=== PATIENT | male | born 1965 | race Caucasian/White ===

== ENCOUNTER 2016-10-23 14:04 | Emergency (ER) | payer OTHER ==
[~2016-10-23] VITALS: Ht 172.7 cm; Wt 73.5 kg
[~2016-10-23 14:04] MED LIST: ADVIL200 MG PO; AMBIEN5 MG PO; KEPPRA750 MG PO; MOBIC15 MG PO; NEURONTIN300 MG PO; NOHOMEMEDS; PERCOCET 5/31 TABLET PO; TRAZODONE HCL50 MG PO; ZESTRIL2.5 MG PO
[2016-10-23 14:29] LABS: EOSINOPHIL (%) 0.2 % (0-5); HEMATOCRIT 37.9 % (38.0-50.0); IMMATURE GRANULOCYTE (%) 0.6 % (0.0-0.7); INSTRUMENT ABS NEUTROPHIL CT 3.9 K/uL; LYMPHOCYTE COUNT 0.6 K/uL (1.0-2.8); MCH 34.1 PG (29.0-34.0); MCHC 34.8 G/DL (30.0-36.0); MCV 97.9 FL (86-99); MEAN PLAT.VOLUME 9.2 uM^3 (9.0-12.4); MONOCYTE (%) 10.1 % (3-12); MONOCYTE COUNT 0.5 K/uL (0-0.8); NEUTROPHIL (%) 77.3 % (45-76); NEUTROPHIL COUNT 3.9 K/uL (1.8-6.4); PLATELET COUNT 113 K/uL (156-360); RBC DIS.WIDTH-CV 14.1 % (11.8-14.6); RBC DIS.WIDTH-SD 50.9 % (39-53); RED BLOOD COUNT 3.87 M/uL (4.00-5.50); WHITE BLOOD COUNT 5.1 K/uL (4.1-10.2)
[2016-10-23 14:47] LABS: CHLORIDE 98 mEq/L (99-109); POTASSIUM 3.9 mEq/L (3.7-5.4); SODIUM 134 mEq/L (136-147)
[2016-10-23 14:50] LABS: GLUCOSE 114 mg/dL (70-99)
[2016-10-23 14:51] LABS: ANION GAP 10 MEQ/L (2-14)
[2016-10-23 14:52] LABS: TOTAL BILIRUBIN 0.5 mg/dL (0.0-1.0)
[2016-10-23 14:53] LABS: ALKALINE PHOSPHATASE 75 IU/L (3-129)
[2016-10-23 14:54] LABS: GFR ESTIMATE (CALCULATED) > 59 mL/min/
[2016-10-23 14:55] LABS: UREA NITROGEN (BUN) 6 mg/dL (9-23)
[2016-10-23 15:17] LABS: SERUM ETHYL ALCOHOL < 10 mg/dL
[2016-10-23 16:25] VITALS: BP 139/86
== END 2016-10-23 16:26 | disposition home or self-care (01) ==
LOC: EME 14:04
PROVIDERS: Emergency Medicine
DX: G40.909 Epilepsy, unspecified, not intractable, without status epilepticus (principal); F10.239 Alcohol dependence with withdrawal, unspecified; F17.200 Nicotine dependence, unspecified, uncomplicated; I10 Essential (primary) hypertension
CPT/HCPCS: 80053; 83735; 85025; 99281; 99284; G0480; J2060; J3411; J3475

== ENCOUNTER 2016-12-07 19:30 | Inpatient (IN) | payer OTHER ==
[~2016-12-07] VITALS: Ht 177.8 cm; Wt 80.5 kg
[2016-12-07 19:54] LABS: BASE EXCESS -8.6 mEq/L (-3 to +3); BICARBONATE 19.7 mEq/L (22-26); CARBOXY HGB 5.2 % (0-5); METHEMOGLOBIN 0.8 % (0-1.5); PCO2 54 mm Hg (35-45)
[2016-12-07 19:55] LABS: PO2 38 mm Hg (80-100); pH 7.17 (7.35-7.45)
[2016-12-07 19:56] LABS: COMMENTS - BLOOD GASES C+; DEVICE VENT; FI02 100 %; MECHANICAL RATE 14 resp/min; MODE A/C; PEEP 5 CM/H20; SITE LR; TIDAL VOLUME 500 ML; TOTAL RESP RATE 14 resp/min
[2016-12-07 20:09] LABS: EOSINOPHIL (%) 0 % (0-5); HEMATOCRIT 32.4 % (38.0-50.0); IMMATURE GRANULOCYTE (%) 0.7 % (0.0-0.7); INSTRUMENT ABS NEUTROPHIL CT 0.5 K/uL; LYMPHOCYTE COUNT 0.7 K/uL (1.0-2.8); MCH 34.8 PG (29.0-34.0); MCHC 34.9 G/DL (30.0-36.0); MCV 99.7 FL (86-99); MEAN PLAT.VOLUME 10.7 uM^3 (9.0-12.4); MONOCYTE (%) 9.6 % (3-12); MONOCYTE COUNT 0.1 K/uL (0-0.8); NEUTROPHIL (%) 34.9 % (45-76); NEUTROPHIL COUNT 0.5 K/uL (1.8-6.4); PLATELET COUNT 62 K/uL (156-360); RBC DIS.WIDTH-CV 14.3 % (11.8-14.6); RBC DIS.WIDTH-SD 52.6 % (39-53); RED BLOOD COUNT 3.25 M/uL (4.00-5.50)
[2016-12-07 20:10] LABS: WHITE BLOOD COUNT 1.4 K/uL (4.1-10.2)
[2016-12-07 20:12] LABS: AMYLASE 277 IU/L (1-118); CHLORIDE 101 mEq/L (99-109); POTASSIUM 3.5 mEq/L (3.7-5.4); SODIUM 137 mEq/L (136-147)
[2016-12-07 20:14] LABS: GLUCOSE 97 mg/dL (70-99)
[2016-12-07 20:15] LABS: ANION GAP 16 MEQ/L (2-14)
[2016-12-07 20:17] LABS: SERUM ETHYL ALCOHOL 443 mg/dL
[2016-12-07 20:18] LABS: GFR ESTIMATE (CALCULATED) > 59 mL/min/
[2016-12-07 20:19] LABS: UREA NITROGEN (BUN) 6 mg/dL (9-23)
[2016-12-07 20:21] LABS: LIPASE > 1055 U/L (1.0-51.0)
[2016-12-07 21:15] LABS: ADD MIUA? YES; BILIRUBIN NEGATIVE; BLOOD SMALL; COLOR STRAW ((YELLOW)); GLUCOSE (STRIP) NEGATIVE; KETONES NEGATIVE; LEUKOCYTES NEGATIVE; NITRITE NEGATIVE; PROTEIN (STRIP) NEGATIVE; SPECIFIC GRAVITY 1.003 (1.000-1.030); UROBILINOGEN 0.2 MG/DL (0.2-1.0)
[2016-12-07] MEDS ORDERED: KEPPRA250 MG PO (21:25)
[2016-12-07] MEDS ORDERED: LEXAPRO10 MG PO (21:26)
[2016-12-07] MEDS ORDERED: PERCOCET 5/31 TABLET PO (21:26)
[2016-12-07] MEDS ORDERED: ZYRTEC10 M2 PO (21:27)
[2016-12-07] MEDS ORDERED: GABAPENTIN600 MG PO (21:27)
[2016-12-07] MEDS ORDERED: TRAZODONE HCL50 MG PO (21:27)
[2016-12-07 21:28] LABS: AMPHETAMINE NEGATIVE (500 ng/mL); BARBITURATES NEGATIVE (200 ng/mL); BENZODIAZEPINES NEGATIVE (150 ng/mL); COCAINE NEGATIVE (150 ng/mL); INTERNAL CONTROLS VALID? YES; METHADONE NEGATIVE (200 ng/mL); METHAMPHETAMINE NEGATIVE (500 ng/mL); OPIATES (MORPHINE) NEGATIVE (100 ng/mL); OXYCODONE PRESUMPTIVE POSITIVE (100 ng/mL); PHENCYCLIDINE NEGATIVE (25 ng/mL); PROPOXYPHENE NEGATIVE (300 ng/mL); THC CANNABINOIDS NEGATIVE (50 ng/mL); TRICYCLIC ANTIDEPRESSANTS NEGATIVE (300 ng/mL)
[2016-12-07] MEDS ORDERED: LISINOPRIL2.5 MG PO (21:28)
[2016-12-07 21:35] LABS: BACTERIA NONE SEEN /HPF; EPITHELIAL CELLS NONE SEEN /HPF; MUCUS NONE SEEN /LPF; RED BLOOD CELLS 0-5 /HPF (0-5); UCUL ADDED? NO; WHITE BLOOD CELLS 0-5 /HPF (0-5)
[2016-12-07 23:06] VITALS: BP 67/53; BP 68/58
[2016-12-07 23:30] VITALS: BP 67/53
[2016-12-07 23:50] VITALS: BP 99/62
[2016-12-07 23:52] LABS: PCO2 48 mm Hg (35-45); PO2 127 mm Hg (80-100); pH < 6.90 (7.35-7.45)
[2016-12-07 23:53] LABS: COMMENTS - BLOOD GASES A+; DEVICE 840; FI02 100 %; MECHANICAL RATE 14 resp/min; MODE AC; PEEP 5 CM/H20; SITE A LINE; TIDAL VOLUME 500 ML; TOTAL RESP RATE 15 resp/min
[2016-12-07] MEDS ORDERED: PROVENTIL HFA6.7 GM IH (23:56)
[2016-12-08] VITALS (12 sets, daily range): BP systolic 82–123; BP diastolic 39–86
[2016-12-08 00:32] LABS: POTASSIUM 4.1 mEq/L (3.7-5.4)
[2016-12-08 00:35] LABS: CHLORIDE 127 mEq/L (99-109); GLUCOSE 34 mg/dL (70-99); MAGNESIUM 0.9 mg/dL (1.3-2.7); SODIUM 149 mEq/L (136-147)
[2016-12-08 00:36] LABS: ANION GAP 10 MEQ/L (2-14); TOTAL BILIRUBIN 0.2 mg/dL (0.0-1.0)
[2016-12-08 00:38] LABS: ALKALINE PHOSPHATASE 15 IU/L (3-129); GFR ESTIMATE (CALCULATED) > 59 mL/min/
[2016-12-08 00:39] LABS: UREA NITROGEN (BUN) 4 mg/dL (9-23)
[2016-12-08 00:58] LABS: INTER. NORMALIZED RATIO > 20.0; PROTHROMBIN TIME > 185.0 (9.2-11.2)
[2016-12-08 00:59] LABS: PTT > 150.0 (25-32)
[2016-12-08 01:16] LABS: BASE EXCESS -18.2 mEq/L (-3 to +3); BICARBONATE 11.6 mEq/L (22-26); COMMENTS - BLOOD GASES C+; DEVICE AMBU BAG; FI02 100 %; PCO2 41 mm Hg (35-45); PEEP 12 CM/H20; PO2 83 mm Hg (80-100); SITE A LINE; TOTAL RESP RATE 30 resp/min; pH 7.06 (7.35-7.45)
[2016-12-08 02:09] LABS: METH RESISTANT S AUREUS PCR NEGATIVE (NEGATIVE)
[2016-12-08 02:27] LABS: PROBE CHECK PASS; SPECIMEN PROCESSING CONTROL PASS
== END 2016-12-08 05:39 | DRG 907 ==
LOC: TRA 19:30 → SDC 21:32 → 2SOUTH 23:27 → 4WEST 23:27
PROVIDERS: Emergency Medicine; Internal Medicine Critical Care Medicine; Surgery
DX: S35.299A Unspecified injury of branches of celiac and mesenteric artery, initial encounter (principal); T79.4XXA Traumatic shock, initial encounter; J96.00 Acute respiratory failure, unspecified whether with hypoxia or hypercapnia; N17.9 Acute kidney failure, unspecified; S22.019A Unspecified fracture of first thoracic vertebra, initial encounter for closed fracture; S22.21XA Fracture of manubrium, initial encounter for closed fracture; S36.899A Unspecified injury of other intra-abdominal organs, initial encounter; D68.9 Coagulation defect, unspecified; I95.9 Hypotension, unspecified; S02.82XA Fracture of other specified skull and facial bones, left side, initial encounter for closed fracture; S02.32XA Fracture of orbital floor, left side, initial encounter for closed fracture; E87.2 Acidosis; S02.40DA Maxillary fracture, left side, initial encounter for closed fracture; S02.602A Fracture of unspecified part of body of left mandible, initial encounter for closed fracture; S02.652A Fracture of angle of left mandible, initial encounter for closed fracture; S22.32XA Fracture of one rib, left side, initial encounter for closed fracture; W13.2XXA Fall from, out of or through roof, initial encounter; Y93.89 Activity, other specified; Y92.018 Other place in single-family (private) house as the place of occurrence of the external cause; E83.42 Hypomagnesemia; E83.51 Hypocalcemia; E16.2 Hypoglycemia, unspecified; R00.1 Bradycardia, unspecified; I46.9 Cardiac arrest, cause unspecified; R40.2432 Glasgow coma scale score 3-8, at arrival to emergency department; R04.2 Hemoptysis; R04.89 Hemorrhage from other sites in respiratory passages; K72.90 Hepatic failure, unspecified without coma; F10.229 Alcohol dependence with intoxication, unspecified; Y90.8 Blood alcohol level of 240 mg/100 ml or more; I10 Essential (primary) hypertension; F41.9 Anxiety disorder, unspecified; F32.9 Major depressive disorder, single episode, unspecified
CPT/HCPCS: 36600; 70250; 70450; 70486; 71010; 71260; 72020; 72040; 72125; 72129; 72132; 72170; 74177; 80048; 80053; 81003; 82150; 82803; 83605; 83690; 83735; 84100; 85025; 85025 91; 85610; 85730; 86900; 86901; 86920; 86965; 87070; 87205; 87641; 94002; 99281; 99284; C1894; G0480; J0171; J0461; J0690; J2250; J2370; J3010; J3475; J7050; J7070; P9012; P9016; P9017; P9035